=== PATIENT | female | born 1970 | race Caucasian/White ===

== ENCOUNTER 2017-09-15 18:08 | Emergency (ER) | payer SELFPAY ==
[2017-09-15 18:20] VITALS: BP 128/82; PULSE 102; RESP 20; TEMP 98.7; O2SAT 99
--- NOTE | 2017-09-15 18:41 | C.PDOC ---
History Of Present Illness 47 year old female, comes to ER for evaluation of left ear pain for the past 3 days. She reports the ear has become swollen and painful, prompting the ER visit. She denies any discharge, foreign body sensation, hearing changes, fever , chills, or known bites to the ear. She offers no other medical complaints. Time Seen by Provider: 09/15/17 18:24 Chief Complaint (Nursing): Abnormal Skin Integrity History Per: Patient History/Exam Limitations: no limitations Onset/Duration Of Symptoms: Days (3) Current Symptoms Are (Timing): Still Present Additional History Per: Patient Past Medical History Reviewed: Historical Data, Nursing Documentation, Vital Signs Vital Signs: Last Vital Signs Temp 98.7 F 09/15/17 18:16 Pulse 102 H 09/15/17 18:16 Resp 20 09/15/17 18:16 BP 128/82 09/15/17 18:16 Pulse Ox 99 09/15/17 19:26 - Medical History PMH: HTN Surgical History: No Surg Hx Family History: States: No Known Family Hx - Social History Hx Alcohol Use: Yes Hx Substance Use: No - Immunization History Hx Tetanus Toxoid Vaccination: Yes Hx Influenza Vaccination: No Hx Pneumococcal Vaccination: Yes Review Of Systems Constitutional: Negative for: Fever, Chills Eyes: Negative for: Redness ENT: Positive for: Ear Pain (left). Negative for: Ear Discharge Respiratory: Negative for: Cough, Shortness of Breath Skin: Negative for: Rash Neurological: Negative for: Headache Physical Exam - Physical Exam Appears: Non-toxic, No Acute Distress Skin: Warm, Dry Head: Atraumatic, Normacephalic Eye(s): bilateral: Normal Inspection Ear(s): Left: Other (Tenderness and swelling to conch, antihelix and scaphoid fossa of left ear.), Right: Normal Nose: Normal, No Flaring Oral Mucosa: Moist Neck: Normal ROM Chest: Symmetrical Cardiovascular: Rhythm Regular Respiratory: Normal Breath Sounds Extremity: Bilateral: Atraumatic, Normal Color And Temperature, Normal ROM Neurological/Psych: Oriented x3 ED Course And Treatment O2 Sat by Pulse Oximetry: 99 (RA) Pulse Ox Interpretation: Normal Medical Decision Making Medical Decision Making: Impression: Left ear pain and swelling. Attempt needle aspiration, no purulent drainage. Keflex PO was given. Patient given first dose of antibiotics in ER and instructed to take medications as prescribed. Patient also informed to follow up with ENT specialist. Disposition Counseled Patient/Family Regarding: Diagnosis, Need For Followup, Rx Given - Disposition Referrals: Cosmo Fraire MD [Staff Provider] - Disposition: HOME/ ROUTINE Disposition Time: 18:39 Condition: GOOD Additional Instructions: nuno antibiticos dos veces al da seguimiento con clnica o ENT para felipa evaluacin adicional Prescriptions: Cephalexin [cephalexin] 500 mg PO Q12 #14 cap Instructions: Cellulitis (Skin Infection), Adult (DC) Forms: [employer] (Belgian) Print Language: GUYANESE - POA Present On Arrival: None - Clinical Impression Clinical Impression: Ear pain, left - PA / [employer] / Resident Statement MD/DO has reviewed & agrees with the documentation as recorded. - Scribe Statement The provider has reviewed the documentation as recorded by the Michelle Jaramillo Provider Attestation: All medical record entries made by the Pardeepiblissett were at my direction and personally dictated by me. I have reviewed the chart and agree that the record accurately reflects my personal performance of the history, physical exam, medical decision making, and the department course for this patient. I have also personally directed, reviewed, and agree with the discharge instructions and disposition.
== END 2017-09-15 19:04 | disposition home or self-care (01) ==
LOC: C.ER 18:08
DX: H92.02 Otalgia, left ear (principal)